=== PATIENT | female | born 1965 | race Caucasian/White ===

== ENCOUNTER → 2016-11-09 | Outpatient (CLI) | payer OTHER | LOC: CAT 09:14 | DX: K92.1 Melena (principal) ==

== ENCOUNTER → 2016-11-17 | Outpatient (CLI) | payer OTHER | LOC: ULTRA 11:48 | DX: N94.9 Unspecified condition associated with female genital organs and menstrual cycle (principal) ==

== ENCOUNTER → 2017-06-18 | Outpatient (CLI) | payer OTHER | LOC: ULTRA 09:37 | DX: R10.11 Right upper quadrant pain (principal); R11.10 Vomiting, unspecified ==